=== PATIENT | female | born 1945 | race Caucasian/White ===

== ENCOUNTER → 2022-12-25 11:47 | Outpatient (CLI) | payer MEDICARE, SELFPAY | LOC: RESP 11:48 | PROVIDERS: Family Provider Student in an Organized Health Care Education/Training Program; PCP Student in an Organized Health Care Education/Training Program; Referring Provider Internal Medicine Pulmonary Disease; Visit Provider Internal Medicine Pulmonary Disease | DX: I27.20 Pulmonary hypertension, unspecified (principal); Z87.891 Personal history of nicotine dependence; J98.8 Other specified respiratory disorders | CPT/HCPCS: 94060; 94726; 94729 ==